=== PATIENT | female | born 1970 | race Caucasian/White ===

== ENCOUNTER 2017-04-23 02:03 | Inpatient (IN) | payer OTHER ==
[~2017-04-23] VITALS: Ht 157.5 cm; Wt 94.0 kg
--- NOTE | 2017-04-23 10:03 | NUR ---
PT RESTING IN BED, NO RESPIRATORY DISTRESS NOTED, DENIES PAIN, NAUSEA, SOB, AND HEADACHE.
[2017-04-23] MEDS ORDERED: LASIX40 MG PO (10:14)
[2017-04-23] MEDS ORDERED: BENAZEPRIL HYDR10 M1 PO (10:14)
[2017-04-23] MEDS ORDERED: KCL PO (10:16)
--- NOTE | 2017-04-23 11:40 | NUR ---
PT RESTING IN BED, NO RESPIRATORY DISTRESS NOTED.
[2017-04-23 12:30] LABS: SODIUM SERUM 138 mmol/L (136-145)
[2017-04-23 12:33] LABS: ALBUMIN 3.2 g/dL (3.4-5.0); CALCIUM 8.6 mg/dL (8.5-10.1); CARBON DIOXIDE 21 mmol/L (21-32); CHLORIDE SERUM 106 mmol/L (98-107); CREATININE SERUM 0.7 mg/dL (0.6-1.0); GFR1 > 60 mL/min; GLUCOSE SERUM 101 mg/dL (74-106); POTASSIUM SERUM 5.6 mmol/L (3.5-5.1)
[2017-04-23 12:34] LABS: ALKALINE PHOSPHATASE 87 U/L (46-116); ALT/SGPT 61 U/L (14-59); AST/SGOT 97 U/L (15-37); BILIRUBIN TOTAL 0.47 mg/dL (0.20-1.00)
--- NOTE | 2017-04-23 12:56 | NUR ---
ECHO COMPLETED. PRESENT.
--- NOTE | 2017-04-23 13:35 | NUR ---
PT RESTING IN BED, NO RESPIRATORY DISTRESS NOTED, DENIES PAIN, NAUSEA, SOB, AND HEADACHE.
[2017-04-23 14:39] VITALS: BP 120/70
[2017-04-23 14:59] LABS: BASOPHIL % 0.6 % (0-2); PLATELET COUNT 300 x10^3mcL (130-400)
[2017-04-23 15:41] LABS: RED CELL DISTRIBUTION WIDTH 15.1 % (11.5-14.5)
[2017-04-23 15:43] VITALS: BP 120/70
[2017-04-23 15:46] LABS: T3 TOTAL 1.14 ng/mL
[2017-04-23 16:15] LABS: CHOLESTEROL/HDL RATIO 4.6
[2017-04-23 16:20] LABS: FREE T4 1.11 ng/dL (0.76-1.46); T4(THYROXINE) 9.1 ug/dL (4.7-13.3)
--- NOTE | 2017-04-23 16:31 | NUR ---
LAB CALLED WITH CRITICAL VALUE LACTIC ACID 2.4, DR PIZARRO NOTIFIED.
[2017-04-23 16:34] LABS: PHOSPHOROUS 3.2 mg/dL (2.5-4.9)
[2017-04-23 16:44] VITALS: BP 107/60
--- NOTE | 2017-04-23 17:42 | NUR ---
PT RESTING IN BED, NO RESPIRATORY DISTRESS NOTED, LEGS HAVE REDUCED SWELLING AND ARE NO LONGER RED. LIPS NO LONGER SWOLLEN OR RED. DENIES PAIN, NAUSEA, SOB, AND HEADACHE.
--- NOTE | 2017-04-23 19:20 | NUR ---
PT A/O X4. TELE #18, NSR AT 74, DENIES CHEST PAIN. PULSES PALPABLE, 1+ EDEMA TO BLE. LUNG SOUNDS CTA, BREATHING FREELY ON RA. PT DENIES SOB. ABD IS SOFT AND NONDISTENDED. BOWEL TONES ACTIVE. PT REPORTS LAST BM WAS TODY, FORMED. PT VOIDS ADEQUATELY. AMBULATORY WITH BRP. PT ADMITS TO 7/10 PAIN AT THIS TIME. WILL ADMINISTER PAIN MED ORDERED. SALINE LOCK TO RAC, PATENT AND INTACT. BED IN LOWEST SETTING, SIDE RAILS UP X2, CALL LIGHT WITHIN REACH. WILL CONTINUE TO MONITOR.
--- NOTE | 2017-04-23 19:38 | NUR ---
PT RESTING IN BED, NO RESPIRATORY DISTRESS NOTED, COMPLAINING OF MILD PAIN.
--- NOTE | 2017-04-23 21:10 | NUR ---
PT COMPLAINING OF 7/10 TO BLE. ADMINISTERED NORCO ORDERED. WILL MONITOR FOR PAIN RELIEF.
[2017-04-23 21:59] VITALS: BP 119/62
--- NOTE | 2017-04-24 02:05 | NUR ---
PT SLEEPING AT THIS TIME. BREATHING IS EVEN AND UNLABORED. NO RESP DISTRESS OBSERVED. WILL CONTINUE TO MONITOR.
[2017-04-24 05:41] VITALS: BP 103/55
--- NOTE | 2017-04-24 06:30 | NUR ---
PT'S IV TO RAC IS LEAKING. NEW IV INSERTED TO LFA, 22G. IV TO RAC DC'D. PT TOLERATED WELL. ROCEPHIN INFUSING WELL TO LFA.
[2017-04-24 06:55] LABS: microscopic required? NO
--- NOTE | 2017-04-24 06:56 | NUR ---
PT SLEPT WELL THROUGHOUT THE NIGHT. 1+ EDEMA NOTED TO BLE, NO REDNESS OBSERVED. PT DENIES PAIN AT THIS TIME. NO RESP DISTRESS OBSERVED. ROCEPHIN INFUSING WELL TO LFA. ALL NEEDS MET. WILL ENDORSE CARE TO AM NURSE.
[2017-04-24 07:22] LABS: CALCIUM 8.6 mg/dL (8.5-10.1); CARBON DIOXIDE 23.9 mmol/L (21-32); CHLORIDE SERUM 106 mmol/L (98-107); CREATININE SERUM 0.8 mg/dL (0.6-1.0); GFR1 > 60 mL/min; GLUCOSE SERUM 87 mg/dL (74-106); POTASSIUM SERUM 3.8 mmol/L (3.5-5.1); SODIUM SERUM 140 mmol/L (136-145)
[2017-04-24 07:43] LABS: urine erythrocyte NEGATIVE (NEGATIVE)
--- NOTE | 2017-04-24 08:00 | NUR ---
A/A/OX3; TELE#18 = SR; HR =77. DENIED CHEST PAIN. NO RESP DISTRESS ON RA. O2 SAT 97% ON RA. DENIED PAIN. LOWER PART OF LEGS GALA NON PITTING SWELLING 1+, PULSES PALPABLE. TOLERATED DIET WELL. IVHL'D TO LFA. IV PATENT WITH NS FLUSH. SITE CLEAN. AMBULATORY. CALL LIGHT IN REACH.
--- NOTE | 2017-04-24 08:30 | NUR ---
DR. LANDON AND MEDICAL TEAM MADE MORNING ROUND. PLAN OF CARE DISCUSSED WITH PATIENT.
[2017-04-24 08:55] VITALS: BP 137/78
[2017-04-24 13:15] VITALS: BP 118/68
[2017-04-24 23:06] VITALS: BP 106/64
--- NOTE | 2017-04-25 01:00 | NUR ---
RECHECK WITH PT. PT IS SLEEPING AT AT TIME, NO FACIL GRIMACIMG. WILL CINTINUE TO FERNANDA
--- NOTE | 2017-04-25 03:00 | NUR ---
EDUCATED PT DO NOT TOSS THE URINE AND FLUSH.
[2017-04-25 05:47] VITALS: BP 117/63
--- NOTE | 2017-04-25 06:00 | NUR ---
NO S/S OF DISTRESS NOTED. ALL PT NEEDS ATTENDED. PT IS IN A STABLE CONDITION. WILL ENDORSE THE CARE TO DAY NURSE.
--- NOTE | 2017-04-25 08:00 | NUR ---
A/A/OX3; TELE#18 = SR; HR = 78; NO CHESET PAIN. NO RESP DISTRESS ON RA. TOLERATED 2G SODIUM DIET BREAKFAST WELL. DENIED ABD PAIN, NO N/V. STATED LAST BM 04/22; COLACE PO GIVEN. IVHL'D TO LFA. IV SITE CLEAN. NO REDNESS/SWELLING. EDEMA 1+ TO BLE'S. C/O MILD PAIN 1/10 ON LEGS ON MOVEMENT AND WHEN PRESSURE FROM EXAMINER'S FINGERS. NO REDNESS SEEN. PEDAL PULSES (+). AMBULATORY. CALL LIGHT IN REACH.
[2017-04-25 09:33] VITALS: BP 119/54
--- NOTE | 2017-04-25 10:40 | NUR ---
DR. WILSON AND MEDICAL TEAM MADE MORNING ROUND. PLAN OF CARE DISCUSSED WITH PATIENT, INCLUDED WITH D/C TO HOME TODAY. PATIENT AGREED WITH PLAN OF CARE.
--- NOTE | 2017-04-25 12:32 | NUR ---
NOTIFIED TO DR. BARTLETT WITH PATIENT HAD NO BM X 3 DAYS. COLACE GIVEN X 2 DAYS, NOT EFFECTIVE. PATIENT FINISHED 100% OF BREAKFSAT. NO N/V.
--- NOTE | 2017-04-25 13:45 | NUR ---
DULCOLAX SUPP GIVEN PER ORDER.
[2017-04-25 13:54] VITALS: BP 105/63
--- NOTE | 2017-04-25 15:08 | NUR ---
STATED HAD SAMLL SOLID BM VIA BRP.
[2017-04-25] MEDS ORDERED: LOT10 PO (16:03)
[2017-04-25] MEDS ORDERED: L20I PO (16:04)
[2017-04-25 16:15] VITALS: BP 105/63
--- NOTE | 2017-04-25 17:25 | NUR ---
HAD SMALL BM X2 AFTER DULCOLAX SUPP GIVEN. NO ABD PAIN. NEGATIVE RESULT OF KUB TODAY. D/C TO HOME PER ORDER. INSTRUCTION GIVEN. CONDITION STABLE. PATIENT STATED SHE HAD AN OPPOINTMENT OF DR. JOSEPH ON 05/06.
== END 2017-04-25 17:20 | disposition home or self-care (01) | DRG 300 ==
LOC: ED 02:03 → DU 05:21
PROVIDERS: ADMIT Family Medicine
DX: I87.2 Venous insufficiency (chronic) (peripheral) (principal); E44.0 Moderate protein-calorie malnutrition; R65.10 Systemic inflammatory response syndrome (SIRS) of non-infectious origin without acute organ dysfunction; Z68.41 Body mass index [BMI] 40.0-44.9, adult; E87.5 Hyperkalemia; E78.5 Hyperlipidemia, unspecified; E66.01 Morbid (severe) obesity due to excess calories; Z86.711 Personal history of pulmonary embolism; Z91.018 Allergy to other foods; I10 Essential (primary) hypertension
CPT/HCPCS: 83880; 84439; J0696; J1885; J1940; J2405; J3010; J7050; Q0092

== ENCOUNTER 2020-06-19 17:47 | Inpatient (IN) | payer BC ==
[~2020-06-19] VITALS: Ht 152.4 cm; Wt 100.4 kg
[~2020-06-19 17:47] MED LIST: BENAZEPRIL HYDR10 M1 PO; KCL PO; L20I PO; LASIX40 MG PO; LOT10 PO
[2020-06-19 18:22] VITALS: Ht 152.4 cm; Wt 100.4 kg
[2020-06-19 19:02] LABS: microscopic required? NO
--- NOTE | 2020-06-19 19:15 | NUR ---
PT IN ED FOR RIGHT SIDED RIB AND RIGHT SIDED BACK PAIN X1 WEEK. PT STS WOKE UP WITH PAIN AND DENIES TRAUMA AND ADDS THIS IS THE FIRST TIME SHE HAS EVER FELT THIS PAIN.
[2020-06-19 19:18] LABS: UA SPECIFIC GRAVITY >=1.030 (1.005-1.035); urine erythrocyte NEGATIVE (NEGATIVE)
[2020-06-19 20:05] LABS: CALCIUM 8.7 mg/dL (8.5-10.1); CARBON DIOXIDE 25.3 mmol/L (21-32); CHLORIDE SERUM 107 mmol/L (98-107); CREATININE SERUM 0.7 mg/dL (0.6-1.0); GFR1 > 60 mL/min; GLUCOSE SERUM 104 mg/dL (74-106); POTASSIUM SERUM 3.6 mmol/L (3.5-5.1); SODIUM SERUM 140 mmol/L (136-145)
[2020-06-19 20:10] LABS: ALBUMIN 3.2 g/dL (3.4-5.0); ALKALINE PHOSPHATASE 94 U/L (46-116); ALT/SGPT 38 U/L (14-59); AST/SGOT 23 U/L (15-37); BILIRUBIN TOTAL 0.2 mg/dL (0.20-1.00); CHOLESTEROL 179 mg/dL (<200); CHOLESTEROL/HDL RATIO 5.3; HDL CHOLESTEROL 34 mg/dL (40-60); LIPASE 161 IU/L (73-393); TOTAL PROTEIN, SERUM 7.1 g/dL (6.4-8.2); TRIGLYCERIDES 168 mg/dL (<150)
[2020-06-19 20:20] LABS: FREE THYROXINE INDEX 2.3 ug/dL (1.4-4.5); T3 TOTAL 1.41 ng/mL; T4(THYROXINE) 7.5 ug/dL (4.7-13.3)
--- NOTE | 2020-06-19 20:48 | NUR ---
PT LAYING IN LEFT LATERAL POSITION IN A POSITION OF COMFORT. PT STILL REPORTS PAIN. PT MEDICATED PER MD ORDER.
--- NOTE | 2020-06-19 22:21 | NUR ---
PT LAYING SUPINE IN THE GURNEY IN A POSITION OF COMFORT WITH EYES CLOSED. PT IS ALERT TO VERBAL STIMULI. PT REPORTS A DECREASE IN PAIN. PT RESPIRATIONS E/U NO DISTRESS NOTED.
--- NOTE | 2020-06-19 22:59 | NUR ---
TRAV TELLO SPECIMEN PLACED IN LAB BUCKET FOR PERIPHERAL EQUIPMENT OPERATOR.
--- NOTE | 2020-06-19 23:24 | NUR ---
PT AAO X4 RESPIRATIONS E/U NO DISTRESS NOTED. PT STATES THAT HER PAIN IS TOLERABEL AT A 2/10 UNLESS SHE TAKES A DEEP BREATH OR PRESSES ON THE AFFECTED AREA.
--- NOTE | 2020-06-20 00:27 | NUR ---
RECEIVED PT FROM ER WITH MASK ON VIA CLARISSE ACCOMPANIED BY NURSE. PT HAS BELONGINGS AT BEDSIDE. CC: RIGHT SIDED CP FOR 1WK. AAOX4. SPEECH IS CLEAR. DENIES ORTEGA. DENIES DIZZINESS. ON TELE #7 READING SR 94, C/O 7/10 CHEST PAIN. WILL MEDICATE ACCORDINGLY PER MAR ORDER. PULSES PALPABLE. +3 EDEMA NOTED TO BLE, ELEVATED ON PILLOWS. BREATHING IS EVEN AND UNLABORED ON RA. LUNG SOUNDS CTA. SOB WITH EXERTION. ABD IS SOFT, ROUND, NONDISTENDED. BS ACTIVE. DENIES N/V/D. LAST BM WAS HARD, PT STATED THIS WAS NORMAL FOR HER. VOIDS FREELY. DENIES DYRSURIA. GENERALIZED WEAKNESS. ENCOURAGED PT TO USE CALL LIGHT FOR ASSISTANCE. PT VERBALIZES UNDERSTANDING. AMBULATORY. SKIN INTACT. DENIES ANY PAIN AT THIS TIME. IV TO LFA PATENT, INTACT, SL. NO ERYTHEMA NOTED. ORIENTED PT TO ROOM AND SURROUNDINGS. SIDE RAILS UP X2. BED IN LOWEST POSITION. CALL LIGHT WITHIN REACH. WILL CONTINUE TO MONITOR.
[2020-06-20 00:55] VITALS: BP 110/50
[2020-06-20 03:16] LABS: BASOPHIL % 0.8 % (0-2); PLATELET COUNT 301 x10^3mcL (130-400)
[2020-06-20 03:29] LABS: RED CELL DISTRIBUTION WIDTH 15.6 % (11.5-14.5)
[2020-06-20 03:38] LABS: CALCIUM 8.1 mg/dL (8.5-10.1); CARBON DIOXIDE 22.4 mmol/L (21-32); CHLORIDE SERUM 108 mmol/L (98-107); CREATININE SERUM 0.7 mg/dL (0.6-1.0); GFR1 > 60 mL/min; GLUCOSE SERUM 123 mg/dL (74-106); MAGNESIUM 1.8 mg/dL (1.8-2.4); PHOSPHOROUS 3.2 mg/dL (2.5-4.9); POTASSIUM SERUM 3.7 mmol/L (3.5-5.1); SODIUM SERUM 139 mmol/L (136-145)
--- NOTE | 2020-06-20 05:54 | NUR ---
PT RESTED COMFORTABLY THROUGHOUT THE NIGHT WITH NO ACUTE EVENTS OCCURRING DURING THE SHIFT. BREATHING IS EVEN AND UNLABORED ON RA. NO RESP DISTRESS NOTED. DENIES ANY PAIN AT THIS TIME. COMFORT AND SAFETY MEASURES MAINTAINED. ALL NEEDS ASSESSED AND ATTENDED TO. WILL CONTINUE TO MONITOR AND ENDORSE CARE TO DAY SHIFT NURSE.
[2020-06-20 06:04] VITALS: BP 110/64
[2020-06-20 08:08] VITALS: BP 106/47
[2020-06-20 12:10] VITALS: BP 119/66
[2020-06-20 17:13] VITALS: BP 114/54
--- NOTE | 2020-06-20 17:28 | NUR ---
0720 AM: PATIENT IS RESTING IN BED QUEITLY. NO ADDITIONAL DISTRESS NOTED. CALL LIGHT WITHIN REACH. WILL CONT TO MONITOR. 0800 AM: EXPLAINED PLAN OF CARE TO PATIENT AND SHE VERBALIZED UNDERSTANDING. PATIENT C/O MILD PAIN TO THE RIGHT FLANK BUT REFUSED PAIN MEDICATION AT THIS TIME. WILL CONT TO MONITOR. 1500: APPLEID WARM COMPRESSED TO THE RIGHT FLANK PER MD ORDER. WILL GIVE LIDOCAINE PATCH WHEN AVAILABLE FROM THE PHARMACY. 1700: PATIENT IS RESTING IN BED QUEITLY WATCHING HER TELENOVELA ON HER PHONE. NO ADDIITONAL DISTRESS NOTED. WILL CONT TO MONITOR.
--- NOTE | 2020-06-20 18:53 | NUR ---
PATIENT IS RESTING IN BED, EATING HER DINNER. NO ADDITIONAL DISTRESS NOTED. WILL CONT TO MONITOR.
--- NOTE | 2020-06-20 20:52 | NUR ---
Awake and verbally responsive. No respiratory distress noted on room air. Denies pain. Denies n/v. Resting and watching on her phone. Will cont.to monitor. Call light within reach.
[2020-06-20 21:01] VITALS: BP 125/50
--- NOTE | 2020-06-21 00:57 | NUR ---
Resting at this time. Denies chest pain.
--- NOTE | 2020-06-21 04:03 | NUR ---
Afebrile. No significant change in condition noted. Denies chest pain. c/o back pain, medicated with norco 1tab. Ambulated.
[2020-06-21 06:10] VITALS: BP 98/53
[2020-06-21 06:59] LABS: BASOPHIL % 0.5 % (0-2); PLATELET COUNT 304 x10^3mcL (130-400)
[2020-06-21 07:50] LABS: RED CELL DISTRIBUTION WIDTH 16.6 % (11.5-14.5)
[2020-06-21 08:04] LABS: CALCIUM 8.6 mg/dL (8.5-10.1); CARBON DIOXIDE 23.3 mmol/L (21-32); CHLORIDE SERUM 108 mmol/L (98-107); CREATININE SERUM 0.7 mg/dL (0.6-1.0); GFR1 > 60 mL/min; GLUCOSE SERUM 92 mg/dL (74-106); MAGNESIUM 2.1 mg/dL (1.8-2.4); PHOSPHOROUS 3.2 mg/dL (2.5-4.9); POTASSIUM SERUM 4.3 mmol/L (3.5-5.1); SODIUM SERUM 141 mmol/L (136-145)
[2020-06-21 08:51] VITALS: BP 148/88
--- NOTE | 2020-06-21 09:25 | NUR ---
Received report from PM Nurse. No adverse events noted. Pt resting in bed. Denies any pain or SOB. AOx4. No S/S of distress noted. Will continue to monitor.
[2020-06-21] MEDS ORDERED: FLE10 PO (12:21)
[2020-06-21 12:42] VITALS: BP 135/69
--- NOTE | 2020-06-21 13:51 | NUR ---
Pt aware she is to be discharged. Her transportaion will around 1630.
[2020-06-21 14:11] VITALS: BP 135/68
== END 2020-06-21 17:28 | disposition home or self-care (01) | DRG 206 ==
LOC: ED 17:47 → DU 23:24
PROVIDERS: Specialist; ADMIT Family Medicine; ATTEND Family Medicine
DX: M94.0 Chondrocostal junction syndrome [Tietze] (principal); Z68.41 Body mass index [BMI] 40.0-44.9, adult; E66.01 Morbid (severe) obesity due to excess calories; E78.5 Hyperlipidemia, unspecified; Z20.828 Contact with and (suspected) exposure to other viral communicable diseases; Z90.49 Acquired absence of other specified parts of digestive tract; Z79.899 Other long term (current) drug therapy; Z79.891 Long term (current) use of opiate analgesic; Z87.440 Personal history of urinary (tract) infections; Z85.72 Personal history of non-Hodgkin lymphomas
CPT/HCPCS: 83880; 84439; G0378; J1885; J2270; J2405; J3010; J7030; Q0092; Q9967